=== PATIENT | male | born 2000 | race Caucasian/White ===

== ENCOUNTER 2022-12-07 15:22 | Outpatient (CLI) | payer OTHER | END 2022-12-07 15:23 | disposition home or self-care (01) | LOC: BICULT 15:22 | PROVIDERS: ATTEND Urology | DX: N50.89 Other specified disorders of the male genital organs (principal) | CPT/HCPCS: 76870; 80048; 85027; 85610; 85730; 93976 ==

== ENCOUNTER 2022-12-11 09:16 | Day surgery (SDC) | payer OTHER ==
[2022-12-07 08:16] VITALS: BMI 23.7
[2022-12-11] MEDS ORDERED: Sodium Chloride 0.9% 100 ML ONE (10:26)
[2022-12-11] MEDS ORDERED: CEFAZOLIN 2 GM VIAL ONE (10:26)
[2022-12-11] MEDS ORDERED: Bupivacaine 0.25% HCL 30 ML VIAL ONE (10:51)
[2022-12-11] MEDS ORDERED: Bacitracin Zinc Ointment 30 gm TUBE ONE (10:51)
[2022-12-11] MEDS ORDERED: Midazolam HCl 2 mg/2 ml Vial ONE (11:05)
[2022-12-11] MEDS ORDERED: fentaNYL PF 100 MCG/2 ML SYRINGE ONE (11:05)
[2022-12-11] MEDS ORDERED: Lidocaine 1% PF 5 ML VIAL ONE (11:26)
[2022-12-11] MEDS ORDERED: Ketorolac Tromethamine 30 MG/ML VIAL ONE (11:26)
[2022-12-11] MEDS ORDERED: Dexamethasone 20 MG/5 ML VIAL ONE (11:26)
[2022-12-11] MEDS ORDERED: PROPOFOL 200 MG/20 ML VIAL ONE (11:26)
[2022-12-11] MEDS ORDERED: Ondansetron PF 4 MG/2 ML Vial ONE (11:26)
[2022-12-11] MEDS ORDERED: Fentanyl 250 MCG/5 ML VIAL ONE (13:22)
== END 2022-12-11 16:32 | disposition home or self-care (01) ==
LOC: SDC 09:16
PROVIDERS: ATTEND Urology
PROC: 0VT90ZZ Resection of Right Testis, Open Approach (ICD-10-PCS; principal; 2022-12-11)
DX: C62.11 Malignant neoplasm of descended right testis (principal)
CPT/HCPCS: 88309; J1100; J1885; J2250; J2405; J2704; J3010; J3490; S0020